=== PATIENT | female | born 1970 | race Caucasian/White ===

== ENCOUNTER 2022-12-31 08:09 | Day surgery (SDC) | payer OTHER ==
[~2022-12-31] VITALS: Ht 160 cm; Wt 86.2 kg
[2022-12-31] MEDS ORDERED: LIDOCAINE 2% 100 MG/5 ML UJET TP ONE (08:54)
[2022-12-31] MEDS ORDERED: fentaNYL citrate 0.05 MG/ML VIAL ONE (08:54)
[2022-12-31] MEDS ORDERED: fentaNYL citrate 0.05 MG/ML VIAL IVP ONE (09:35)
== END 2022-12-31 10:15 | disposition home or self-care (01) ==
LOC: MDS 08:09 → MMU 08:09 → MDS 10:15
PROVIDERS: ATTEND Internal Medicine Gastroenterology
DX: Z12.11 Encounter for screening for malignant neoplasm of colon (principal); K64.9 Unspecified hemorrhoids; I10 Essential (primary) hypertension; Z79.899 Other long term (current) drug therapy; Z20.822 Contact with and (suspected) exposure to COVID-19
CPT/HCPCS: 45378; 87426; J3010